=== PATIENT | female | born 1960 | race Caucasian/White ===

== ENCOUNTER 2020-10-29 12:09 | Day surgery (SDC) | payer BC ==
[~2020-10-29] VITALS: Ht 162.6 cm; Wt 88.5 kg
[2020-10-29] MEDS ORDERED: HYDROCODON-ACE1 EAC2 PO (12:58)
--- NOTE | 2020-10-30 12:14 | NUR ---
RIDE HERE FOR PT CALLED TRANSPORT TO COME UP AND GET HER
== END 2020-10-30 12:36 | disposition home or self-care (01) ==
LOC: OR 12:09 → MED SURG 4 18:27 → OR 10-30 12:36
PROVIDERS: Orthopaedic Surgery
PROC: 0PSH04Z Reposition Right Radius with Internal Fixation Device, Open Approach (ICD-10-PCS; 2020-10-29)
PROC: 0PSJ04Z Reposition Left Radius with Internal Fixation Device, Open Approach (ICD-10-PCS; principal; 2020-10-29 15:15)
DX: S52.572A Other intraarticular fracture of lower end of left radius, initial encounter for closed fracture (principal); S52.571A Other intraarticular fracture of lower end of right radius, initial encounter for closed fracture; E66.01 Morbid (severe) obesity due to excess calories; Z68.33 Body mass index [BMI] 33.0-33.9, adult; Z20.822 Contact with and (suspected) exposure to COVID-19; W19.XXXA Unspecified fall, initial encounter
CPT/HCPCS: 73110; 76000; 93005; C1713; J0690; J1100; J1885; J2001; J2250; J2405; J2704; J3010; J7120